=== PATIENT | female | born 1965 | race Native Hawaiian/Other Pacific Islander ===

== ENCOUNTER 2016-05-31 12:28 | Outpatient (CLI) | payer OTHER ==
[~2016-05-31 12:28] MED LIST: CLON1TAB18 PO; HEARTBURN150 MG PO; LAMICTAL100 MG PO; LEVO0.0218 PO; SERT50TA PO
== END 2016-05-31 12:29 | disposition short-term general hospital (02) ==
LOC: AMB 12:28
DX: R07.89 Other chest pain (principal); R42 Dizziness and giddiness
CPT/HCPCS: A0425; A0427

== ENCOUNTER 2016-05-31 12:29 | Observation (INO) | payer OTHER ==
[~2016-05-31] VITALS: Ht 160 cm; Wt 57.8 kg
[2016-05-31 12:35] VITALS: BP 120/70; TEMP 97.1
[2016-05-31 13:00] VITALS: BP 118/68
[2016-05-31 13:00] LABS: PLATELET COUNT 241 K/uL (152-353)
[2016-05-31 13:11] LABS: SODIUM 132 mmol/L (136-145)
[2016-05-31 13:27] LABS: PARTIAL THROMBOPLASTIN TIME 26.1 SECONDS (24.5-33.6)
[2016-05-31 14:05] VITALS: BP 129/69
[2016-05-31 15:00] VITALS: BP 126/72
[2016-05-31 20:00] VITALS: BP 118/66; TEMP 97.5
[2016-05-31 23:38] VITALS: BP 118/66; TEMP 98.5; Ht 160 cm; Wt 57.8 kg
[2016-06-01] VITALS: BP 109/63; TEMP 98
[2016-06-01 04:00] VITALS: BP 116/75; TEMP 98.4
[2016-06-01 08:00] VITALS: BP 156/81; TEMP 97.8
[2016-06-01 12:00] VITALS: BP 120/71; TEMP 97.6
== END 2016-06-01 17:09 | disposition home or self-care (01) ==
LOC: ED 12:29 → MED/SURG 14:34
PROVIDERS: ADMIT Emergency Medicine
DX: R07.89 Other chest pain (principal); R06.02 Shortness of breath; F45.8 Other somatoform disorders
CPT/HCPCS: 36415; 80053; 82550; 84443; 84484; 85027; 85610; 85730; 93005; 93225; 96361; 96365; 96366; 96374; 99220; 99284; G0378; J1100; J1650

== ENCOUNTER 2016-12-30 09:22 | Outpatient (CLI) | payer OTHER | END 2016-12-30 19:06 | disposition home or self-care (01) | LOC: MAMMO 09:22 | DX: Z12.31 Encounter for screening mammogram for malignant neoplasm of breast (principal) ==

== ENCOUNTER 2018-09-25 17:57 | Outpatient (CLI) | payer OTHER | END 2018-09-25 20:33 | disposition home or self-care (01) | LOC: LAB 17:57 | DX: Z86.010 Personal history of colon polyps (principal) | CPT/HCPCS: 82272 ==

== ENCOUNTER 2018-12-12 11:29 | Outpatient (CLI) | payer OTHER | END 2018-12-12 20:19 | disposition home or self-care (01) | LOC: MAMMO 11:29 | DX: Z12.31 Encounter for screening mammogram for malignant neoplasm of breast (principal) ==

== ENCOUNTER 2019-10-31 10:33 | Outpatient (CLI) | payer OTHER | END 2019-10-31 20:14 | disposition home or self-care (01) | LOC: LABW 10:33 | DX: K64.0 First degree hemorrhoids (principal) | CPT/HCPCS: 82272 ==

== ENCOUNTER 2019-12-17 08:19 | Outpatient (CLI) | payer OTHER | END 2019-12-17 23:22 | disposition home or self-care (01) | LOC: MAMMO 08:19 | DX: Z12.31 Encounter for screening mammogram for malignant neoplasm of breast (principal) ==

== ENCOUNTER 2020-06-18 10:01 | Outpatient (CLI) | payer OTHER | END 2020-06-18 19:19 | disposition home or self-care (01) | LOC: MAMMO 10:01 | PROVIDERS: ATTEND Nurse Practitioner Family | DX: N63.15 Unspecified lump in the right breast, overlapping quadrants (principal) | CPT/HCPCS: G0279 ==

== ENCOUNTER 2020-07-30 08:30 | Outpatient (CLI) | payer OTHER | END 2020-07-30 22:17 | disposition home or self-care (01) | LOC: LABW 08:30 | PROVIDERS: ATTEND Nurse Practitioner Family | DX: F41.1 Generalized anxiety disorder (principal); F31.5 Bipolar disorder, current episode depressed, severe, with psychotic features | CPT/HCPCS: 36415; 80053; 80061; 82248; 84443 ==

== ENCOUNTER 2020-12-03 09:21 | Outpatient (CLI) | payer OTHER | END 2020-12-03 21:51 | disposition home or self-care (01) | LOC: LABW 09:21 | PROVIDERS: ATTEND Internal Medicine Gastroenterology | DX: K64.0 First degree hemorrhoids (principal) | CPT/HCPCS: 82272 ==

== ENCOUNTER 2020-12-11 08:37 | Outpatient (CLI) | payer OTHER | END 2020-12-11 20:00 | disposition home or self-care (01) | LOC: MAMMO 08:37 | PROVIDERS: ATTEND Physician Assistant | DX: Z12.31 Encounter for screening mammogram for malignant neoplasm of breast (principal); H66.90 Otitis media, unspecified, unspecified ear; R09.81 Nasal congestion; F32.A Depression, unspecified; F41.9 Anxiety disorder, unspecified; N63.0 Unspecified lump in unspecified breast ==

== ENCOUNTER 2020-12-30 | Emergency (ER) | payer OTHER ==
[~2020-12-30] VITALS: Ht 160 cm; Wt 60.3 kg
[2020-12-30 00:39] LABS: PLATELET COUNT 323 K/uL (152-353)
[2020-12-30 00:58] LABS: POTASSIUM 3.1 mmol/L (3.6-5.2)
[2020-12-30 03:12] VITALS: BP 114/79; TEMP 98
== END 2020-12-30 03:12 | disposition home or self-care (01) ==
LOC: ED
PROVIDERS: Emergency Medicine Emergency Medical Services
DX: R07.89 Other chest pain (principal); N39.0 Urinary tract infection, site not specified
CPT/HCPCS: 36415; 80053; 81000; 84484; 85027; 85379; 93005; 96360; 96375; 99284; J2060; J3490

== ENCOUNTER 2021-02-20 10:33 | Outpatient (CLI) | payer OTHER | END 2021-02-20 23:01 | disposition home or self-care (01) | LOC: RAD 10:33 | PROVIDERS: ATTEND Physician Assistant | DX: Z78.0 Asymptomatic menopausal state (principal) ==

== ENCOUNTER 2021-03-18 07:30 | Outpatient (CLI) | payer OTHER ==
[2021-03-18 08:21] LABS: POTASSIUM 4.7 mmol/L (3.6-5.2)
[2021-03-18 08:40] LABS: PLATELET COUNT 275 K/uL (152-353)
== END 2021-03-18 19:30 | disposition home or self-care (01) ==
LOC: LABW 07:30
PROVIDERS: ATTEND Nurse Practitioner Family
DX: F41.1 Generalized anxiety disorder (principal); F33.1 Major depressive disorder, recurrent, moderate
CPT/HCPCS: 36415; 80053; 80061; 85027

== ENCOUNTER 2021-11-23 10:40 | Outpatient (CLI) | payer BC, OTHER | END 2021-11-23 19:01 | disposition home or self-care (01) | LOC: MAMMO 10:40 | PROVIDERS: ATTEND Obstetrics & Gynecology | DX: N60.19 Diffuse cystic mastopathy of unspecified breast (principal); N64.89 Other specified disorders of breast | CPT/HCPCS: G0279 ==